=== PATIENT | male | born 1995 | race Caucasian/White ===

== ENCOUNTER → 2020-11-24 | Outpatient (CLI) | payer OTHER | END | disposition home or self-care (01) | LOC: RAD 08:45 | PROVIDERS: ATTEND Family Medicine | DX: M25.775 Osteophyte, left foot (principal); M79.672 Pain in left foot ==

== ENCOUNTER → 2020-11-30 | Outpatient (CLI) | payer OTHER | END | disposition home or self-care (01) | LOC: LAB 05:10 | PROVIDERS: ATTEND Emergency Medicine | DX: Z20.822 Contact with and (suspected) exposure to COVID-19 (principal) | CPT/HCPCS: 87635; U0003; U0005 ==